=== PATIENT | male | born 1970 | race Caucasian/White ===

== ENCOUNTER 2018-01-05 14:18 | Emergency (ER) | payer OTHER ==
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
[2018-01-05] MEDS ORDERED: HYDROCODONE/APAP 5/325 TAB PO ONE (16:14)
[2018-01-05] MEDS ORDERED: IBUPROFEN 600 MG TAB PO ONE (16:14)
[2018-01-05 16:56] VITALS: BP 117/83
== END 2018-01-05 16:55 | disposition home or self-care (01) ==
LOC: CED 14:18
DX: S42.251A Displaced fracture of greater tuberosity of right humerus, initial encounter for closed fracture (principal); S42.141A Displaced fracture of glenoid cavity of scapula, right shoulder, initial encounter for closed fracture; V18.0XXA Pedal cycle driver injured in noncollision transport accident in nontraffic accident, initial encounter; Y93.55 Activity, bike riding; Y92.410 Unspecified street and highway as the place of occurrence of the external cause; Y99.8 Other external cause status
CPT/HCPCS: 73030-PO; 73200-PO; 93971-PO; A4565